=== PATIENT | male | born 1970 | race American Indian/Alaskan Native ===

== ENCOUNTER 2021-09-06 19:00 | Emergency (ER) | payer MEDICAID ==
[2021-09-06 22:50] LABS: Bilirubin,Urine NEG (Negative); Blood,Urine NEG (Negative); Color,Urine Straw (Yellow); Protein,Urine <15 mg/dL mg/dL (Negative); Urobilinogen,Urine < 2.0 mg/dL (<2.0)
[2021-09-06 22:51] LABS: Mucus,Urine FEW /HPF; RBC,Urine < 1.0 /HPF (0.0-6.0)
[2021-09-06 22:54] LABS: WBC,Urine < 1.0 /HPF (0.0-6.0)
[2021-09-06 22:59] LABS: Amphetamine Screen,Urine PRESUMPTIVE NEGATIVE; Benzodiazepines Screen,Urine PRESUMPTIVE NEGATIVE; Cannabinoid Screen,Urine PRESUMPTIVE NEGATIVE; Cocaine Screen,Urine PRESUMPTIVE NEGATIVE; Methadone Screen,Urine PRESUMPTIVE NEGATIVE; Opiate Screen,Urine PRESUMPTIVE NEGATIVE
[2021-09-06 23:00] LABS: Hematocrit 44.2 % (35.5-45.6); Hemoglobin 14.9 gm/dl (11.8-15.2); Mean Corpuscular HGB Conc 34 % (32-34); Mean Corpuscular Volume 92 fl (84-94); Platelet Count 183 K/mm3 (140-440); Red Blood Count 4.79 M/mm3 (3.65-5.03); Red Cell Distribution Width 15.8 % (13.2-15.2)
[2021-09-06 23:06] LABS: Basophils # (Auto) 0.1 K/mm3 (0.0-0.1); Basophils % (Auto) 1.1 % (0.0-1.8); Eosinophils # (Auto) 0.2 K/mm3 (0.0-0.4); Eosinophils % (Auto) 3.7 % (0.0-4.3); Lymphocytes # (Auto) 1.5 K/mm3 (1.2-5.4); Lymphocytes % (Auto) 30.5 % (13.4-35.0); Monocytes # (Auto) 0.4 K/mm3 (0.0-0.8); Monocytes % (Auto) 8.3 % (0.0-7.3)
--- NOTE | 2021-09-06 23:28 | Emergency Department Report ---
ED General Adult HPI - General Chief complaint: Psych Stated complaint: MENTAL EVALUATION PUI?: No Time Seen by Provider: 09/06/21 21:05 Source: patient, EMS Mode of arrival: Stretcher Limitations: No Limitations - History of Present Illness Initial comments: From [facility]. Reports that he has been refusing MEDS for 1 week. Hearing voices. Some aggresive behavior today. Denies SI nor HI. Coooperative at this time -: Gradual Severity scale (0 -10): 0 Consistency: constant Improves with: none Worsens with: none - Related Data Home Medications Medication Instructions Recorded Confirmed Last Taken Paliperidone Palmitate [Invega 1 syr IM 09/06/21 Unknown Sustenna] Previous Rx's Medication Instructions Recorded Last Taken Type Benztropine [Cogentin] 1 tab PO QHS #30 09/09/21 Unknown Rx QUEtiapine [SEROquel] 25 mg PO QAM #30 tablet 09/09/21 Unknown Rx Quetiapine Fumarate [SEROquel] 2 tab PO QHS #60 09/09/21 Unknown Rx Trazodone HCl 150 mg PO QHS #30 09/09/21 Unknown Rx diphenhydrAMINE [Benadryl CAP] 50 mg PO QHS #30 cap 09/09/21 Unknown Rx Allergies Allergy/AdvReac Type Severity Reaction Status Date / Time No Known Allergies Allergy Verified 09/06/21 22:17 ED Review of Systems ROS: Stated complaint: MENTAL EVALUATION Other details as noted in HPI Constitutional: denies: chills, fever Eyes: denies: eye pain, eye discharge, vision change ENT: denies: ear pain, throat pain Respiratory: denies: cough, shortness of breath, wheezing Cardiovascular: denies: chest pain, palpitations Endocrine: no symptoms reported Gastrointestinal: denies: abdominal pain, nausea, diarrhea Genitourinary: denies: urgency, dysuria Musculoskeletal: denies: back pain, joint swelling, arthralgia Skin: denies: rash, lesions Neurological: denies: headache, weakness, paresthesias Psychiatric: denies: anxiety, depression Hematological/Lymphatic: denies: easy bleeding, easy bruising ED Past Medical Hx - Past Medical History Previous Medical History?: Yes Hx Psychiatric Treatment: Yes (substance abuse, Schizoprhrenia) - Surgical History Past Surgical History?: No - Social History Smoking Status: Current Every Day Smoker Substance Use Type: None - Medications Home Medications: Home Medications Medication Instructions Recorded Confirmed Last Taken Type Paliperidone Palmitate [Invega 1 syr IM 09/06/21 Unknown History Sustenna] Benztropine [Cogentin] 1 tab PO QHS #30 09/09/21 Unknown Rx QUEtiapine [SEROquel] 25 mg PO QAM #30 tablet 09/09/21 Unknown Rx Quetiapine Fumarate [SEROquel] 2 tab PO QHS #60 09/09/21 Unknown Rx Trazodone HCl 150 mg PO QHS #30 09/09/21 Unknown Rx diphenhydrAMINE [Benadryl CAP] 50 mg PO QHS #30 cap 09/09/21 Unknown Rx ED Physical Exam - General Limitations: No Limitations General appearance: alert, anxious - Head Head exam: Present: atraumatic, normocephalic - Eye Eye exam: Present: normal appearance - ENT ENT exam: Present: mucous membranes moist - Neck Neck exam: Present: normal inspection - Respiratory Respiratory exam: Present: normal lung sounds bilaterally. Absent: respiratory distress - Cardiovascular Cardiovascular Exam: Present: regular rate, normal rhythm. Absent: systolic murmur, diastolic murmur, rubs, gallop - GI/Abdominal GI/Abdominal exam: Present: soft, normal bowel sounds - Rectal Rectal exam: Present: deferred - Extremities Exam Extremities exam: Present: normal inspection - Back Exam Back exam: Present: normal inspection - Neurological Exam Neurological exam: Present: alert, oriented X3 - Psychiatric Psychiatric exam: Present: normal affect, anxious - Skin Skin exam: Present: warm, dry, intact, normal color. Absent: rash ED Course Vital Signs 09/06/21 09/06/21 09/06/21 19:01 19:51 19:56 Temperature 98 F 98.0 F Pulse Rate 91 H 84 Respiratory 18 16 Rate Blood Pressure 132/78 Blood Pressure 135/67 [Left] O2 Sat by Pulse 99 97 97 Oximetry 09/07/21 09/07/21 09/08/21 10:51 17:30 00:00 Temperature 97.8 F 98 F Pulse Rate 63 76 Respiratory 16 20 Rate Blood Pressure Blood Pressure 115/76 132/67 [Left] O2 Sat by Pulse 99 100 100 Oximetry 09/08/21 09/08/21 09/08/21 10:04 11:22 20:14 Temperature 97.6 F 97.6 F Pulse Rate 70 62 Respiratory 18 18 Rate Blood Pressure Blood Pressure 115/72 122/89 [Left] O2 Sat by Pulse 98 98 98 Oximetry 09/09/21 09/09/21 09/09/21 01:00 02:52 08:07 Temperature 97.6 F 98.8 F Pulse Rate 60 82 Respiratory 18 20 Rate Blood Pressure Blood Pressure 119/87 120/88 [Left] O2 Sat by Pulse 100 98 99 Oximetry ED Medical Decision Making - Lab Data Result diagrams: 09/06/21 22:47 09/06/21 22:47 Critical care attestation.: If time is entered above; I have spent that time in minutes in the direct care of this critically ill patient, excluding procedure time. ED Disposition Clinical Impression: Encounter for behavioral health screening, Encounter for medical screening examination Disposition: HOME / SELF CARE / HOMELESS Is pt being admited?: No Does the pt Need Aspirin: No Condition: Good Additional Instructions: Please follow-up with an outpatient mental health specialist within the next week. Avoid consumption of alcohol, tobacco, smoke products and recreational drugs. Please return to the emergency room right away with new pain, worsened pain, migration of pain, projectile vomiting, change in mental status, confusion, inability tolerate liquid feeds, new, worsened or different symptoms not present on the initial emergency room evaluation professional and Agency Contacts To help [facility] (29/09) [place] Crisis Line: Suicide Prevention Line: Crisis Text Line: Text ``START to [phone] Emergency: 911 Outpatient [facility] Behavioral Health Resources: GIANNI: [facility] [address] [place] [address] [facility] [address] [place] [address] Thursday thru Thursday - 8am - 5pm Call to schedule an assessment for mental health and substance abuse programs [facility] Address: [address] [place] [address] Thursday thru Thursday- 7am-2pm [facility] Address: [address] [place], [place] Thursday thrthursday: 8:30AM-5PM Please follow-up with an outpatient mental health specialist within the next week. Avoid consumption of alcohol, tobacco, smoke products and recreational drugs. Please return to the emergency room right away with new pain, worsened pain, migration of pain, projectile vomiting, change in mental status, confusion, inability tolerate liquid feeds, new, worsened or different symptoms not present on the initial emergency room evaluation professional and Agency Contacts To help [facility] (29/09) [place] Crisis Line: Suicide Prevention Line: Crisis Text Line: Text ``START to [phone] Emergency: 911 Outpatient [facility]UNITY Behavioral Health Resources: DEKALB: [facility] [address] [place], [place] [address] [facility] [place] [address] Thursday thru Thursday - 8am - 5pm Call to schedule an assessment for mental health and substance abuse pro grams [facility] Address: [address] [place], [place] Thursday thru Thursday- 7am-2pm [facility] Address: [address] [place], [place] Thursday thrthursday: 8:30AM-5PM Professional and Agency Contacts To help [facility](29/09) [place] Crisis Line: Suicide Prevention Line: Crisis Text Line: Text START to [phone] Emergency: 911 Outpatient [facility] Behavioral Health Resources: DEKALB: [facility] [address] [place], [place] [address] [address] [address] Thursday thru Thursday - 8am - 5pm FABIO: [facility] Address: [address], [place] [address] CATRACHITA: [facility] Address: [address] [place], [place] [address]Thursday thru Thursday- 7am-2pm [facility] Address: [address] [place], [place] Thursday thru Thursday: 8:30AM-5PM Prescriptions: diphenhydrAMINE [Benadryl CAP] 50 mg PO QHS #30 cap Benztropine [Cogentin] 1 tab PO QHS #30 Quetiapine Fumarate [SEROquel] 2 tab PO QHS #60 Trazodone HCl 150 mg PO QHS #30 QUEtiapine [SEROquel] 25 mg PO QAM #30 tablet Referrals: [facility] [Outside] - 3-5 Days [facility] [Outside] - 3-5 Days
[2021-09-06 23:56] LABS: BUN/Creatinine Ratio 14; Blood Urea Nitrogen 13 mg/dL (9-20); Calcium 9.2 mg/dL (8.4-10.2); Hemolysis Index 14
--- NOTE | 2021-09-07 09:16 | Consultation ---
History of Present Illness - Reason for Consult Consult date: 09/07/21 Reason for consult: psychosis - History of Present Psychiatric Illness The patient was seen today. He is irritable. He says he doesn't want to keep answering the same question because "then people will start to think I am suicidal." The patient is upset, and says his brother lied on him. He then says "and the other person lied too." The patient says he hears voices that are "threats." He would not says what the threats are. He then tells me that his brother took his meds out of the house because he missed one day of taking the meds. He says "but when my brother got here he told the people I wasn't taking them, when I only missed one day. My brother took the meds." He denies SI/HI. He also denies any illicit drug use. He says he smokes cigarets and alcohol occasional. PAST PSYCHIATRIC HISTORY: Diagnoses: Schizophrenia Suicide attempts or Self-harm behavior: Denies Prior psychiatric hospitalizations: Yes Substance Abuse history: Denies Previous psychiatric medications tried: could not recall Outpatient treatment: Yes PAST MEDICAL HISTORY: None reported Family Psychiatric History: None reported or documented SOCIAL HISTORY Marital Status: Single Living Arrangements: lives with someone Employment Status: Disabled Access to guns/weapons: Denies Education: Associates History of Abuse:Denies Legal History: Denies REVIEW OF SYSTEMS Constitutional: Negative for weight loss ENT: Negative for stridor Respiratory: Negative for cough or hemoptysis All other systems reviewed and are negative MENTAL STATUS EXAMINATION General Appearance and Behavior: Age appropriate, wearing appropriate clothes, cooperative, irritable, good eye contact Cooperation: cooperative Psychomotor Behavior: Psychomotor normal Mood: okay Affect and affective range: congruent with stated affect Thought Process: Goal directed Thought Content: hallucinations Speech: Normal volume, Regular rate and rhythm Suicidal Ideation: Denies Homicidal Ideation: Denies Hallucination: Auditory Delusions: Denies Impulse Control: Limited Insight and Judgment: Limited Memory: Intact Attention:attentive Orientation: Alert and oriented Diagnoses: Schizophrenia Treatment Plan 1013 Restart home meds Medical: Per primary Sitter: Defer to primary Disposition: Recommend acute psychiatric inpatient treatment Will follow. Thanks Case staffed with Dr. Blakely Medications and Allergies Allergies Allergy/AdvReac Type Severity Reaction Status Date / Time No Known Allergies Allergy Verified 09/06/21 22:17 Home Medications Medication Instructions Recorded Confirmed Last Taken Type Benztropine [Cogentin] 1 tab PO QHS 09/06/21 09/06/21 1 Day Ago History ~09/05/21 Paliperidone Palmitate [Invega 1 syr IM 09/06/21 Unknown History Sustenna] Quetiapine Fumarate [SEROquel] 2 tab PO QHS 09/06/21 09/06/21 1 Day Ago History ~09/05/21 Trazodone HCl 150 mg PO QHS 09/06/21 09/06/21 1 Day Ago History ~09/05/21 diphenhydrAMINE [Benadryl CAP] 50 mg PO QHS 09/06/21 09/06/21 1 Day Ago History ~09/05/21 Mental Status Exam - Vital signs Last Vital Signs Temp 98.0 F 09/06/21 19:51 Pulse 84 09/06/21 19:51 Resp 16 09/06/21 19:51 BP 135/67 09/06/21 19:51 Pulse Ox 97 09/06/21 19:56 Results Result Diagrams: 09/06/21 22:47 09/06/21 22:47 Abnormal lab results 09/06/21 09/06/21 09/06/21 Range/Units 22:47 22:47 22:47 RDW (13.2-15.2) % [place] % (Auto) (0.0-7.3) % Glucose 114 H (75-100) mg/dL Salicylates < 0.3 L (2.8-20.0) mg/dL Acetaminophen 5.0 L (10.0-30.0) ug/mL 09/06/21 Range/Units 22:47 RDW 15.8 H (13.2-15.2) % [place] % (Auto) 8.3 H (0.0-7.3) % Glucose (75-100) mg/dL Salicylates (2.8-20.0) mg/dL Acetaminophen (10.0-30.0) ug/mL All other labs normal.
[2021-09-07] MEDS ORDERED: ZIPRASIDONE MESYLATE 20 MG VIAL IM PRN (11:19)
[2021-09-07] MEDS ORDERED: ACETAMINOPHEN 325 MG TAB PO ONE (18:01)
--- NOTE | 2021-09-07 21:20 | Emergency Department Report ---
Blank Doc - Documentation Documentation: Chart reviewed 50-year-old male on 1012 for acute psychosis and aggressive behavior. Vital signs reviewed. Patient has psychiatric meds scheduled to begin today. Pending acceptance to psychiatric facility
[2021-09-07] MEDS ORDERED: NON-FORMULARY EACH (Trazodone Hcl [Trazodone Hcl] 150 MG Tablet) PO SCH (22:00)
[2021-09-07] MEDS ORDERED: NON-FORMULARY EACH (Quetiapine Fumarate [Seroquel] 300 MG Tablet) PO SCH (22:00)
[2021-09-07] MEDS: QUEtiapine 200 MG TAB PO SCH (22:00)
[2021-09-07] MEDS: diphenhydrAMINE 50 MG CAP PO SCH (22:00)
[2021-09-07] MEDS: traZODone 50 MG TAB PO SCH (22:00)
[2021-09-07] MEDS: BENZTROPINE 1 MG TAB PO SCH (22:00)
[2021-09-07] MEDS: traZODone 100 MG TAB PO SCH (22:00)
--- NOTE | 2021-09-08 10:30 | Progress Note ---
Subjective - Reason for Consult Consult date: 09/08/21 Reason for consult: psychosis - Chief Complaint Chief complaint: The patient was seen today. He is asking about going home. The patient denies hallucinations, but he is responding to internal stimuli. He at times is looking around, and states that "if they here me talking to myself, it's because I'm praying." He denies SI/HI. Will adjust medications and continue to recommend inpatient treatment. REVIEW OF SYSTEMS Constitutional: Negative for weight loss ENT: Negative for stridor Respiratory: Negative for cough or hemoptysis All other systems reviewed and are negative MENTAL STATUS EXAMINATION General Appearance and Behavior: Age appropriate, wearing appropriate clothes, cooperative, irritable, good eye contact Cooperation: cooperative Psychomotor Behavior: Psychomotor normal Mood: okay Affect and affective range: congruent with stated affect Thought Process: Goal directed Thought Content: hallucinations Speech: Normal volume, Regular rate and rhythm Suicidal Ideation: Denies Homicidal Ideation: Denies Hallucination: Auditory Delusions: Denies Impulse Control: Limited Insight and Judgment: Limited Memory: Intact Attention:attentive Orientation: Alert and oriented Diagnoses: Schizophrenia Treatment Plan 1013 Start Seroquel 25mg qam in addition to night dose Medical: Per primary Sitter: Defer to primary Disposition: Recommend acute psychiatric inpatient treatment Will follow. Thanks Case staffed with Dr. Blakely Mental Status Exam - Vital signs Last Vital Signs Temp 98 F 09/08/21 00:00 Pulse 76 09/08/21 00:00 Resp 20 09/08/21 00:00 BP 132/67 09/08/21 00:00 Pulse Ox 98 09/08/21 10:04
[2021-09-08] MEDS: traZODone 100 MG TAB PO SCH (22:00)
[2021-09-08] MEDS: diphenhydrAMINE 50 MG CAP PO SCH (22:00)
[2021-09-08] MEDS: QUEtiapine 200 MG TAB PO SCH (22:00)
[2021-09-08] MEDS: traZODone 50 MG TAB PO SCH (22:34)
[2021-09-08] MEDS: BENZTROPINE 1 MG TAB PO SCH (22:36)
[2021-09-09 08:19] VITALS: BP 120/88
[2021-09-09] MEDS ORDERED: QUEtiapine 25 MG TAB PO SCH (10:00)
--- NOTE | 2021-09-09 10:27 | Progress Note ---
Subjective - Reason for Consult Consult date: 09/09/21 Reason for consult: psychosis - Chief Complaint Chief complaint: The patient was seen today. He is asking about going home. The patient denies hallucinations of any kind. He denies SI/HI. He says "Ma'am, I been calm, and just in here chilling. I haven't been hearing voices or nothing. And I'm not suicidal." REVIEW OF SYSTEMS Constitutional: Negative for weight loss ENT: Negative for stridor Respiratory: Negative for cough or hemoptysis All other systems reviewed and are negative MENTAL STATUS EXAMINATION General Appearance and Behavior: Age appropriate, wearing appropriate clothes, cooperative, irritable, good eye contact Cooperation: cooperative Psychomotor Behavior: Psychomotor normal Mood: good Affect and affective range: congruent with stated affect Thought Process: Goal directed Thought Content: None Speech: Normal volume, Regular rate and rhythm Suicidal Ideation: Denies Homicidal Ideation: Denies Hallucination: Denies Delusions: Denies Impulse Control: Limited Insight and Judgment: Limited Memory: Intact Attention:attentive Orientation: Alert and oriented Diagnoses: Schizophrenia Treatment Plan d/c 1013 Seroquel 25mg qam in addition to night dose Seroquel 600mg po qhs Trazodone 150mg po qhs Benadryl 50mg po qhs Cogentin 1mg po qhs Medical: Per primary Sitter: Defer to primary Disposition: Do not recommend acute psychiatric inpatient treatment. The patient verbalizes understanding that if SI/HI or any fear of endangerment arise he is to seek immediate assistance The integrity assessor to further discuss safety plan and give all necessary outpatient resources The patient to follow up with outpatient psych in 7 to 14 days upon discharge Will sign off. Thanks Case staffed with Dr. Blakely Mental Status Exam - Vital signs Last Vital Signs Temp 98.8 F 09/09/21 08:07 Pulse 82 09/09/21 08:07 Resp 20 09/09/21 08:07 BP 120/88 09/09/21 08:07 Pulse Ox 99 09/09/21 08:07
--- NOTE | 2021-09-09 11:51 | Event Note ---
Date: 09/09/21 The patient was evaluated in the emergency department for symptoms described in the history of present illness. He/she was evaluated in the context of the global COVID-19 pandemic, which necessitated consideration that the patient might be at risk for infection with the virus that causes COVID-19. Institutional protocols and algorithms that pertain to the evaluation of patients at risk for COVID-19 are in a state of rapid change based on information released by regulatory bodies including the CDC and federal and state organizations. These policies and algorithms were followed during the patient's care in the emergency department. Please note that these policies, procedures and recommendations changed on a rapid basis. Laboratory studies, vital signs, nursing documentation, ER documentation, and psychiatric documentation are reviewed and appreciated. Nursing team reports no acute events this morning or concerns. The patient is awake and ambulating and does not appear to be in any acute distress. The patient was deemed medically suitable for psychiatric disposition and placement during his initial ER evaluation. The patient continues to remain medically suitable for psychiatric placement and disposition. The psychiatric team have advised that he no longer meets criteria for 1013 hold or involuntary confinement. Nursing team reports no acute issues. Psychiatric team have provided this patient with appropriate prescriptions. He will therefore be discharged. Vital Signs 09/06/21 09/06/21 09/06/21 19:01 19:51 19:56 Temperature 98 F 98.0 F Pulse Rate 91 H 84 Respiratory 18 16 Rate Blood Pressure 132/78 Blood Pressure 135/67 [Left] O2 Sat by Pulse 99 97 97 Oximetry 09/07/21 09/07/21 09/08/21 10:51 17:30 00:00 Temperature 97.8 F 98 F Pulse Rate 63 76 Respiratory 16 20 Rate Blood Pressure Blood Pressure 115/76 132/67 [Left] O2 Sat by Pulse 99 100 100 Oximetry 09/08/21 09/08/21 09/08/21 10:04 11:22 20:14 Temperature 97.6 F 97.6 F Pulse Rate 70 62 Respiratory 18 18 Rate Blood Pressure Blood Pressure 115/72 122/89 [Left] O2 Sat by Pulse 98 98 98 Oximetry 09/09/21 09/09/21 09/09/21 01:00 02:52 08:07 Temperature 97.6 F 98.8 F Pulse Rate 60 82 Respiratory 18 20 Rate Blood Pressure Blood Pressure 119/87 120/88 [Left] O2 Sat by Pulse 100 98 99 Oximetry Lab Results 09/06/21 09/06/21 09/06/21 Range/Units 20:18 20:18 22:47 WBC (4.5-11.0) K/mm3 RBC (3.65-5.03) M/mm3 Hgb (11.8-15.2) gm/dl Hct (35.5-45.6) % MCV (84-94) fl MCH (28-32) pg MCHC (32-34) % RDW (13.2-15.2) % Plt Count (140-440) K/mm3 Lymph % (Auto) (13.4-35.0) % Drew % (Auto) (0.0-7.3) % Eos % (Auto) (0.0-4.3) % Baso % (Auto) (0.0-1.8) % Lymph # (Auto) (1.2-5.4) K/mm3 Drew # (Auto) (0.0-0.8) K/mm3 Eos # (Auto) (0.0-0.4) K/mm3 Baso # (Auto) (0.0-0.1) K/mm3 Seg Neutrophils % (40.0-70.0) % Seg Neutrophils # (1.8-7.7) K/mm3 Sodium (137-145) mmol/L Potassium (3.6-5.0) mmol/L Chloride (98-107) mmol/L Carbon Dioxide (22-30) mmol/L Anion Gap mmol/L BUN (9-20) mg/dL Creatinine (0.8-1.3) mg/dL Estimated GFR ml/min BUN/Creatinine Ratio % Glucose (75-100) mg/dL Calcium (8.4-10.2) mg/dL Urine Color Straw (Yellow) Urine Turbidity Clear (Clear) Urine pH 6.0 (5.0-7.0) Ur Specific [place] 1.010 (1.003-1.030) Urine Protein <15 mg/dl (Negative) mg/dL Urine Glucose (UA) Neg (Negative) mg/dL Urine Ketones Neg (Negative) mg/dL Urine Blood Neg (Negative) Urine Nitrite Neg (Negative) Urine Bilirubin Neg (Negative) Urine Urobilinogen < 2.0 (<2.0) mg/dL Ur Leukocyte Esterase Neg (Negative) Urine WBC (Auto) < 1.0 (0.0-6.0) /HPF Urine RBC (Auto) < 1.0 (0.0-6.0) /HPF U Epithel Cells (Auto) < 1.0 (0-13.0) /HPF Urine Mucus Few /HPF Salicylates < 0.3 L (2.8-20.0) mg/dL Urine Opiates Screen Presumptive negative Urine Methadone Screen Presumptive negative Acetaminophen (10.0-30.0) ug/mL Ur Barbiturates Screen Presumptive negative Ur Phencyclidine Scrn Presumptive negative Ur Amphetamines Screen Presumptive negative U Benzodiazepines Scrn Presumptive negative Urine Cocaine Screen Presumptive negative U Marijuana (THC) Screen Presumptive negative Drugs of Abuse Note Disclamer Plasma/Serum Alcohol (0-0.07) % Coronavirus (PCR) (Negative) 09/06/21 09/06/21 09/06/21 Range/Units 22:47 22:47 22:47 WBC (4.5-11.0) K/mm3 RBC (3.65-5.03) M/mm3 Hgb (11.8-15.2) gm/dl Hct (35.5-45.6) % MCV (84-94) fl MCH (28-32) pg MCHC (32-34) % RDW (13.2-15.2) % Plt Count (140-440) K/mm3 Lymph % (Auto) (13.4-35.0) % Drew % (Auto) (0.0-7.3) % Eos % (Auto) (0.0-4.3) % Baso % (Auto) (0.0-1.8) % Lymph # (Auto) (1.2-5.4) K/mm3 Drew # (Auto) (0.0-0.8) K/mm3 Eos # (Auto) (0.0-0.4) K/mm3 Baso # (Auto) (0.0-0.1) K/mm3 Seg Neutrophils % (40.0-70.0) % Seg Neutrophils # (1.8-7.7) K/mm3 Sodium 140 (137-145) mmol/L Potassium 4.2 (3.6-5.0) mmol/L Chloride 104.2 (98-107) mmol/L Carbon Dioxide 22 (22-30) mmol/L Anion Gap 18 mmol/L BUN 13 (9-20) mg/dL Creatinine 0.9 (0.8-1.3) mg/dL Estimated GFR > 60 ml/min BUN/Creatinine Ratio 14 % Glucose 114 H (75-100) mg/dL Calcium 9.2 (8.4-10.2) mg/dL Urine Color (Yellow) Urine Turbidity (Clear) Urine pH (5.0-7.0) Ur Specific [place] (1.003-1.030) Urine Protein (Negative) mg/dL Urine Glucose (UA) (Negative) mg/dL Urine Ketones (Negative) mg/dL Urine Blood (Negative) Urine Nitrite (Negative) Urine Bilirubin (Negative) Urine Urobilinogen (<2.0) mg/dL Ur Leukocyte Esterase (Negative) Urine WBC (Auto) (0.0-6.0) /HPF Urine RBC (Auto) (0.0-6.0) /HPF U Epithel Cells (Auto) (0-13.0) /HPF Urine Mucus /HPF Salicylates (2.8-20.0) mg/dL Urine Opiates Screen Urine Methadone Screen Acetaminophen 5.0 L (10.0-30.0) ug/mL Ur Barbiturates Screen Ur Phencyclidine Scrn Ur Amphetamines Screen U Benzodiazepines Scrn Urine Cocaine Screen U Marijuana (THC) Screen Drugs of Abuse Note Plasma/Serum Alcohol < 0.01 (0-0.07) % Coronavirus (PCR) (Negative) 09/06/21 09/06/21 Range/Units 22:47 Unknown WBC 5.0 (4.5-11.0) K/mm3 RBC 4.79 (3.65-5.03) M/mm3 Hgb 14.9 (11.8-15.2) gm/dl Hct 44.2 (35.5-45.6) % MCV 92 (84-94) fl MCH 31 (28-32) pg MCHC 34 (32-34) % RDW 15.8 H (13.2-15.2) % Plt Count 183 (140-440) K/mm3 Lymph % (Auto) 30.5 (13.4-35.0) % Drew % (Auto) 8.3 H (0.0-7.3) % Eos % (Auto) 3.7 (0.0-4.3) % Baso % (Auto) 1.1 (0.0-1.8) % Lymph # (Auto) 1.5 (1.2-5.4) K/mm3 Drew # (Auto) 0.4 (0.0-0.8) K/mm3 Eos # (Auto) 0.2 (0.0-0.4) K/mm3 Baso # (Auto) 0.1 (0.0-0.1) K/mm3 Seg Neutrophils % 56.4 (40.0-70.0) % Seg Neutrophils # 2.8 (1.8-7.7) K/mm3 Sodium (137-145) mmol/L Potassium (3.6-5.0) mmol/L Chloride (98-107) mmol/L Carbon Dioxide (22-30) mmol/L Anion Gap mmol/L BUN (9-20) mg/dL Creatinine (0.8-1.3) mg/dL Estimated GFR ml/min BUN/Creatinine Ratio % Glucose (75-100) mg/dL Calcium (8.4-10.2) mg/dL Urine Color (Yellow) Urine Turbidity (Clear) Urine pH (5.0-7.0) Ur Specific [place] (1.003-1.030) Urine Protein (Negative) mg/dL Urine Glucose (UA) (Negative) mg/dL Urine Ketones (Negative) mg/dL Urine Blood (Negative) Urine Nitrite (Negative) Urine Bilirubin (Negative) Urine Urobilinogen (<2.0) mg/dL Ur Leukocyte Esterase (Negative) Urine WBC (Auto) (0.0-6.0) /HPF Urine RBC (Auto) (0.0-6.0) /HPF U Epithel Cells (Auto) (0-13.0) /HPF Urine Mucus /HPF Salicylates (2.8-20.0) mg/dL Urine Opiates Screen Urine Methadone Screen Acetaminophen (10.0-30.0) ug/mL Ur Barbiturates Screen Ur Phencyclidine Scrn Ur Amphetamines Screen U Benzodiazepines Scrn Urine Cocaine Screen U Marijuana (THC) Screen Drugs of Abuse Note Plasma/Serum Alcohol (0-0.07) % Coronavirus (PCR) Negative (Negative)
== END 2021-09-09 13:28 | disposition home or self-care (01) ==
LOC: ED 19:00
DX: Z13.30 Encounter for screening examination for mental health and behavioral disorders, unspecified (principal); Z20.822 Contact with and (suspected) exposure to COVID-19; F17.200 Nicotine dependence, unspecified, uncomplicated; Z79.899 Other long term (current) drug therapy
CPT/HCPCS: 36415; 80048; 80307; 81001; 85025; 99285; U0003; 80320; G0480